=== PATIENT | male | born 1950 | race Caucasian/White ===

== ENCOUNTER 2016-08-08 15:39 | Emergency (ER) | payer OTHER ==
[~2016-08-08] VITALS: Ht 170.2 cm; Wt 104.3 kg
[~2016-08-08 15:39] MED LIST: ACETAMINOPHEN/O1 TA3 PO; APR10 PO; ATI1 PO; ATIVAN1 MG PO; ATIVAN2 M1 PO; ATIVAN2 MG PO; CELEXA10 MG PO; COL100 PO; COL250 PO; DIO160 PO; DIOVAN160 MG PO; ECO81 PO; EFF75 PO; EFFEXOR XR150 M1 PO; EFFEXOR-XR37.5 MG PO; ELA25 PO; ELAVIL25 MG PO; FER300 PO; FERROUS SULFAT325 M2 PO; FLA500 PO; GLU850 PO; KLOR-CON M2020 MEQ PO; LAC PO; LAC30L PO; LANTUS SOLOS100 U/M1 SC; LANTUS SOLOS100 U/ML SC; LEVAQUIN LEVA-750 M1 PO; LISINOPRIL10 MG PO; MAC100 PO; METFORMIN HCL1000 MG PO; METFORMIN850 M1 PO; METFORMIN850 MG PO; METOPROLOL SUC100 M2; MSC15 PO; NEU100 PO; NEURONTIN300 PO; NEXIUM40 MG PO; NOR10T PO; NOR5 PO; PAXIL20 MG PO; PERCOCET 10/3251 TAB PO; PERCOCET1 TA2 PO; PRI20 PO; PRILOSEC40 MG PO; REGLAN10 MG PO; TRE400 PO; ULT50 PO; VITAMIN C250 M1 PO; XANAX0.5 MG PO
[2016-08-08 17:59] LABS: microscopic required? NO
[2016-08-08 18:12] LABS: urine erythrocyte NEGATIVE (NEGATIVE)
[2016-08-08 18:15] LABS: BASOPHIL % 0.2 % (0-2); PLATELET COUNT 239 x10^3mcL (130-400)
[2016-08-08 18:16] LABS: RED CELL DISTRIBUTION WIDTH 16.9 % (11.5-14.5)
[2016-08-08 18:32] LABS: CALCIUM 8.1 mg/dL (8.5-10.1); CARBON DIOXIDE 28.4 mmol/L (21-32); CHLORIDE SERUM 104 mmol/L (98-107); CREATININE SERUM 0.9 mg/dL (0.7-1.3); GFR1 > 60 mL/min; GLUCOSE SERUM 142 mg/dL (74-106); POTASSIUM SERUM 3.7 mmol/L (3.5-5.1); SODIUM SERUM 142 mmol/L (136-145)
[2016-08-08 18:44] LABS: ALKALINE PHOSPHATASE 138 U/L (46-116); ALT/SGPT 155 U/L (16-63); AST/SGOT 169 U/L (15-37); BILIRUBIN TOTAL 0.6 mg/dL (0.20-1.00); TOTAL PROTEIN, SERUM 6.8 g/dL (6.4-8.2)
[2016-08-08 18:45] LABS: ALBUMIN 2.9 g/dL (3.4-5.0)
[2016-08-08 19:59] VITALS: BP 128/78
== END 2016-08-08 19:59 | disposition home or self-care (01) ==
LOC: ED 15:39
PROVIDERS: Emergency Medicine
DX: J18.1 Lobar pneumonia, unspecified organism (principal); G89.4 Chronic pain syndrome; M54.2 Cervicalgia; M54.9 Dorsalgia, unspecified; F43.10 Post-traumatic stress disorder, unspecified
CPT/HCPCS: 83880

== ENCOUNTER 2016-08-28 22:00 | Emergency (ER) | payer OTHER ==
[2016-08-28 22:42] LABS: BASOPHIL % 0.6 % (0-2); PLATELET COUNT 313 x10^3mcL (130-400)
[2016-08-28 22:43] LABS: RED CELL DISTRIBUTION WIDTH 15.5 % (11.5-14.5)
[2016-08-28 23:02] LABS: CARBON DIOXIDE 26.3 mmol/L (21-32); CHLORIDE SERUM 110 mmol/L (98-107); CREATININE SERUM 0.9 mg/dL (0.7-1.3); GFR1 > 60 mL/min; GLUCOSE SERUM 197 mg/dL (74-106); POTASSIUM SERUM 3.3 mmol/L (3.5-5.1); SODIUM SERUM 147 mmol/L (136-145)
[2016-08-28 23:09] LABS: ALBUMIN 3.2 g/dL (3.4-5.0); ALKALINE PHOSPHATASE 81 U/L (46-116); ALT/SGPT 17 U/L (16-63); AST/SGOT 13 U/L (15-37); BILIRUBIN TOTAL 0.35 mg/dL (0.20-1.00); LIPASE 113 IU/L (73-393); TOTAL PROTEIN, SERUM 6.6 g/dL (6.4-8.2)
[2016-08-29 00:36] VITALS: BP 161/95
== END 2016-08-29 00:36 | disposition home or self-care (01) ==
LOC: ED 22:00
PROVIDERS: Emergency Medicine
DX: R10.9 Unspecified abdominal pain (principal); G89.29 Other chronic pain; M54.9 Dorsalgia, unspecified; E87.6 Hypokalemia; F41.9 Anxiety disorder, unspecified; E11.9 Type 2 diabetes mellitus without complications; G62.9 Polyneuropathy, unspecified; Z98.890 Other specified postprocedural states
CPT/HCPCS: J1630; J2270; J2405

== ENCOUNTER 2016-08-29 07:04 | Emergency (ER) | payer OTHER ==
[~2016-08-29] VITALS: Ht 172.7 cm; Wt 86.2 kg
[2016-08-29 08:17] VITALS: BP 171/99
== END 2016-08-29 08:45 | disposition home or self-care (01) ==
LOC: ED 07:04
DX: F41.1 Generalized anxiety disorder (principal); F43.9 Reaction to severe stress, unspecified; G89.29 Other chronic pain; M54.9 Dorsalgia, unspecified; E11.9 Type 2 diabetes mellitus without complications; I10 Essential (primary) hypertension; E66.01 Morbid (severe) obesity due to excess calories; R07.9 Chest pain, unspecified; R06.02 Shortness of breath
CPT/HCPCS: J1630; J1885; J2060

== ENCOUNTER 2016-09-24 17:05 | Emergency (ER) | payer OTHER ==
[~2016-09-24] VITALS: Ht 170.2 cm; Wt 93.0 kg
[2016-09-24 19:48] VITALS: BP 145/88
== END 2016-09-24 19:48 | disposition home or self-care (01) ==
LOC: ED 17:05
DX: F41.9 Anxiety disorder, unspecified (principal); M54.5 Low back pain; Z91.013 Allergy to seafood
CPT/HCPCS: J1885

== ENCOUNTER 2016-09-30 05:31 | Emergency (ER) | payer OTHER ==
[~2016-09-30] VITALS: Ht 170.2 cm; Wt 93.0 kg
[2016-09-30 07:02] LABS: CALCIUM 8.3 mg/dL (8.5-10.1); CARBON DIOXIDE 28.3 mmol/L (21-32); CHLORIDE SERUM 102 mmol/L (98-107); CREATININE SERUM 0.8 mg/dL (0.7-1.3); GFR1 > 60 mL/min; GLUCOSE SERUM 202 mg/dL (74-106); POTASSIUM SERUM 3.6 mmol/L (3.5-5.1); SODIUM SERUM 136 mmol/L (136-145)
[2016-09-30 07:06] LABS: ALKALINE PHOSPHATASE 89 U/L (46-116); ALT/SGPT 14 U/L (16-63); AST/SGOT 13 U/L (15-37); BILIRUBIN TOTAL 0.2 mg/dL (0.20-1.00); CHOLESTEROL 190 mg/dL (<200); CHOLESTEROL/HDL RATIO 3.6; HDL CHOLESTEROL 53 mg/dL (40-60); LIPASE 76 IU/L (73-393); TOTAL PROTEIN, SERUM 6.7 g/dL (6.4-8.2); TRIGLYCERIDES 173 mg/dL (<150)
[2016-09-30 07:07] LABS: ALBUMIN 2.9 g/dL (3.4-5.0)
[2016-09-30 07:16] LABS: BASOPHIL % 0.4 % (0-2); PLATELET COUNT 259 x10^3mcL (130-400)
[2016-09-30 07:19] LABS: T3 TOTAL 1.39 ng/mL
[2016-09-30 07:20] LABS: RED CELL DISTRIBUTION WIDTH 15.1 % (11.5-14.5)
[2016-09-30 07:24] LABS: microscopic required? NO
[2016-09-30 07:55] LABS: urine erythrocyte NEGATIVE (NEGATIVE)
[2016-09-30 08:15] LABS: FREE T4 1.05 ng/dL (0.76-1.46)
[2016-09-30 08:53] VITALS: BP 160/96
== END 2016-09-30 08:53 | disposition home or self-care (01) ==
LOC: ED 05:31
PROVIDERS: Specialist
DX: R10.30 Lower abdominal pain, unspecified (principal); M19.90 Unspecified osteoarthritis, unspecified site; G90.9 Disorder of the autonomic nervous system, unspecified; G89.29 Other chronic pain
CPT/HCPCS: 83880; 84439; J1885; J2405; J7030

== ENCOUNTER 2016-10-05 12:27 | Emergency (ER) | payer OTHER ==
[2016-10-05 15:06] VITALS: BP 172/86
== END 2016-10-05 15:06 | disposition home or self-care (01) ==
LOC: ED 12:27
DX: F41.9 Anxiety disorder, unspecified (principal); M54.9 Dorsalgia, unspecified; G89.29 Other chronic pain; E11.9 Type 2 diabetes mellitus without complications; I10 Essential (primary) hypertension; E66.9 Obesity, unspecified; F43.10 Post-traumatic stress disorder, unspecified; Z79.899 Other long term (current) drug therapy; Z98.890 Other specified postprocedural states; Z79.891 Long term (current) use of opiate analgesic; Z91.013 Allergy to seafood
CPT/HCPCS: J1630; J1885; J2060

== ENCOUNTER 2016-10-31 09:13 | Emergency (ER) | payer OTHER ==
[2016-10-31 10:06] LABS: ALKALINE PHOSPHATASE 92 U/L (46-116); ALT/SGPT 32 U/L (16-63); AST/SGOT 22 U/L (15-37); BILIRUBIN TOTAL 0.22 mg/dL (0.20-1.00); CALCIUM 8.4 mg/dL (8.5-10.1); CARBON DIOXIDE 27.9 mmol/L (21-32); CHLORIDE SERUM 101 mmol/L (98-107); GFR1 > 60 mL/min; GLUCOSE SERUM 236 mg/dL (74-106); SODIUM SERUM 138 mmol/L (136-145)
[2016-10-31 10:07] LABS: BASOPHIL % 0.3 % (0-2); PLATELET COUNT 318 x10^3mcL (130-400)
[2016-10-31 10:08] LABS: ALBUMIN 2.8 g/dL (3.4-5.0); POTASSIUM SERUM 2.8 mmol/L (3.5-5.1); RED CELL DISTRIBUTION WIDTH 14.8 % (11.5-14.5)
[2016-10-31 11:24] VITALS: BP 120/64
== END 2016-10-31 11:24 | disposition home or self-care (01) ==
LOC: ED 09:13
PROVIDERS: Specialist
DX: E87.6 Hypokalemia (principal); M79.1 Myalgia; I10 Essential (primary) hypertension; E11.9 Type 2 diabetes mellitus without complications
CPT/HCPCS: J1885; J2405; J3010; J7030

== ENCOUNTER 2016-11-16 18:30 | Emergency (ER) | payer OTHER ==
[~2016-11-16] VITALS: Ht 170.2 cm; Wt 95.2 kg
[2016-11-16 19:07] VITALS: BP 163/103
== END 2016-11-16 19:40 | disposition home or self-care (01) ==
LOC: ED 18:30
DX: G89.29 Other chronic pain (principal); M54.5 Low back pain; F41.9 Anxiety disorder, unspecified; Z88.6 Allergy status to analgesic agent

== ENCOUNTER 2016-11-23 20:38 | Emergency (ER) | payer OTHER ==
[~2016-11-23] VITALS: Ht 170.2 cm; Wt 95.2 kg
[2016-11-23 21:34] LABS: BASOPHIL % 0.3 % (0-2); PLATELET COUNT 365 x10^3mcL (130-400)
[2016-11-23 21:35] LABS: RED CELL DISTRIBUTION WIDTH 14.6 % (11.5-14.5)
[2016-11-23 21:40] LABS: ALBUMIN 3.5 g/dL (3.4-5.0); ALKALINE PHOSPHATASE 81 U/L (46-116); ALT/SGPT 17 U/L (16-63); AMYLASE 28 U/L (25-115); AST/SGOT 20 U/L (15-37); BILIRUBIN TOTAL 0.41 mg/dL (0.20-1.00); CALCIUM 8.5 mg/dL (8.5-10.1); CARBON DIOXIDE 19.3 mmol/L (21-32); CHLORIDE SERUM 103 mmol/L (98-107); CREATININE SERUM 1.2 mg/dL (0.7-1.3); GFR1 > 60 mL/min; GLUCOSE SERUM 117 mg/dL (74-106); LIPASE 76 IU/L (73-393); SODIUM SERUM 141 mmol/L (136-145); TOTAL PROTEIN, SERUM 7.6 g/dL (6.4-8.2)
[2016-11-23 21:44] LABS: POTASSIUM SERUM 2.7 mmol/L (3.5-5.1)
[2016-11-23 23:57] VITALS: BP 186/105
== END 2016-11-23 23:57 | disposition home or self-care (01) ==
LOC: ED 20:38
PROVIDERS: Emergency Medicine
DX: F13.20 Sedative, hypnotic or anxiolytic dependence, uncomplicated (principal); R11.10 Vomiting, unspecified; K57.92 Diverticulitis of intestine, part unspecified, without perforation or abscess without bleeding; Z91.013 Allergy to seafood; Z79.899 Other long term (current) drug therapy; Z79.891 Long term (current) use of opiate analgesic
CPT/HCPCS: 36415; 83880; J1885; Q0162

== ENCOUNTER 2016-12-15 08:57 | Emergency (ER) | payer OTHER, MEDICAID ==
[~2016-12-15] VITALS: Ht 170.2 cm; Wt 95.2 kg
[2016-12-15 09:50] LABS: BASOPHIL % 0.6 % (0-2); PLATELET COUNT 331 x10^3mcL (130-400)
[2016-12-15 09:51] LABS: RED CELL DISTRIBUTION WIDTH 15.4 % (11.5-14.5)
[2016-12-15 09:56] LABS: CALCIUM 8.1 mg/dL (8.5-10.1); CARBON DIOXIDE 27.3 mmol/L (21-32); CHLORIDE SERUM 102 mmol/L (98-107); CREATININE SERUM 1.1 mg/dL (0.7-1.3); GFR1 > 60 mL/min; GLUCOSE SERUM 253 mg/dL (74-106); SODIUM SERUM 138 mmol/L (136-145)
[2016-12-15 10:09] LABS: POTASSIUM SERUM 2.8 mmol/L (3.5-5.1)
[2016-12-15 11:48] VITALS: BP 170/89
== END 2016-12-15 11:48 | disposition home or self-care (01) ==
LOC: ED 08:57
PROVIDERS: Emergency Medicine
DX: R07.89 Other chest pain (principal); F13.20 Sedative, hypnotic or anxiolytic dependence, uncomplicated; F11.20 Opioid dependence, uncomplicated; E87.6 Hypokalemia; F41.9 Anxiety disorder, unspecified; E11.9 Type 2 diabetes mellitus without complications; I10 Essential (primary) hypertension; Z79.891 Long term (current) use of opiate analgesic; Z79.4 Long term (current) use of insulin; Z79.84 Long term (current) use of oral hypoglycemic drugs; Z91.013 Allergy to seafood
CPT/HCPCS: 36415; Q0092

== ENCOUNTER 2016-12-17 12:39 | Emergency (ER) | payer OTHER, MEDICAID ==
[2016-12-17 14:08] LABS: CALCIUM 8.4 mg/dL (8.5-10.1); CARBON DIOXIDE 29.4 mmol/L (21-32); CHLORIDE SERUM 105 mmol/L (98-107); CREATININE SERUM 0.9 mg/dL (0.7-1.3); GFR1 > 60 mL/min; GLUCOSE SERUM 183 mg/dL (74-106); POTASSIUM SERUM 3.4 mmol/L (3.5-5.1); SODIUM SERUM 140 mmol/L (136-145)
[2016-12-17 15:20] VITALS: BP 147/72
== END 2016-12-17 15:20 | disposition home or self-care (01) ==
LOC: ED 12:39
PROVIDERS: Emergency Medicine
DX: G89.29 Other chronic pain (principal); F11.20 Opioid dependence, uncomplicated; M54.5 Low back pain; E87.6 Hypokalemia; E11.9 Type 2 diabetes mellitus without complications; I10 Essential (primary) hypertension; Z91.013 Allergy to seafood
CPT/HCPCS: 36415; J1885

== ENCOUNTER 2016-12-29 04:27 | Emergency (ER) | payer OTHER, MEDICAID ==
[~2016-12-29] VITALS: Ht 170.2 cm; Wt 95.2 kg
[2016-12-29 04:49] LABS: BASOPHIL % 0.4 % (0-2); PLATELET COUNT 349 x10^3mcL (130-400)
[2016-12-29 04:50] LABS: RED CELL DISTRIBUTION WIDTH 15.1 % (11.5-14.5)
[2016-12-29 05:11] LABS: ALKALINE PHOSPHATASE 76 U/L (46-116); ALT/SGPT 15 U/L (16-63); AST/SGOT 30 U/L (15-37); CALCIUM 8.2 mg/dL (8.5-10.1); CARBON DIOXIDE 34.2 mmol/L (21-32); CHLORIDE SERUM 103 mmol/L (98-107); CREATININE SERUM 1.1 mg/dL (0.7-1.3); GFR1 > 60 mL/min; GLUCOSE SERUM 134 mg/dL (74-106); HDL CHOLESTEROL 41 mg/dL (40-60); LIPASE 63 IU/L (73-393); SODIUM SERUM 143 mmol/L (136-145); TOTAL PROTEIN, SERUM 7.2 g/dL (6.4-8.2); TRIGLYCERIDES 192 mg/dL (<150)
[2016-12-29 05:13] LABS: CHOLESTEROL 205 mg/dL (<200)
[2016-12-29 05:14] LABS: FREE T4 1.19 ng/dL (0.76-1.46); FREE THYROXINE INDEX 3.3 ug/dL (1.4-4.5); POTASSIUM SERUM 2.6 mmol/L (3.5-5.1); T4(THYROXINE) 9.2 ug/dL (4.7-13.3)
[2016-12-29 06:00] VITALS: BP 157/87
[2016-12-29 06:10] LABS: T3 TOTAL 0.93 ng/mL
== END 2016-12-29 06:00 | disposition home or self-care (01) ==
LOC: ED 04:27
PROVIDERS: Specialist
DX: F41.9 Anxiety disorder, unspecified (principal); I10 Essential (primary) hypertension; E11.40 Type 2 diabetes mellitus with diabetic neuropathy, unspecified; F43.10 Post-traumatic stress disorder, unspecified; F17.200 Nicotine dependence, unspecified, uncomplicated; K21.9 Gastro-esophageal reflux disease without esophagitis; F13.10 Sedative, hypnotic or anxiolytic abuse, uncomplicated; F11.10 Opioid abuse, uncomplicated; Z91.013 Allergy to seafood; Z98.890 Other specified postprocedural states
CPT/HCPCS: 36415; 83880; 84439; J1885; Q0092

== ENCOUNTER 2017-02-05 15:15 | Emergency (ER) | payer OTHER ==
[2017-02-05 17:52] LABS: CHLORIDE SERUM 99 mmol/L (98-107); CREATININE SERUM 1.1 mg/dL (0.7-1.3); GFR1 > 60 mL/min; GLUCOSE SERUM 153 mg/dL (74-106); POTASSIUM SERUM 3.1 mmol/L (3.5-5.1); SODIUM SERUM 138 mmol/L (136-145)
[2017-02-05 19:17] VITALS: BP 175/101
== END 2017-02-05 19:17 | disposition home or self-care (01) ==
LOC: ED 15:15
PROVIDERS: Emergency Medicine
DX: S09.90XA Unspecified injury of head, initial encounter (principal); E87.6 Hypokalemia; G89.4 Chronic pain syndrome; I10 Essential (primary) hypertension; E11.9 Type 2 diabetes mellitus without complications; W17.89XA Other fall from one level to another, initial encounter; Y93.89 Activity, other specified; Y99.8 Other external cause status; Y92.89 Other specified places as the place of occurrence of the external cause
CPT/HCPCS: 36415

== ENCOUNTER 2017-02-12 07:53 | Emergency (ER) | payer OTHER, MEDICAID ==
[2017-02-12 08:51] LABS: CALCIUM 9.1 mg/dL (8.5-10.1); CARBON DIOXIDE 20.8 mmol/L (21-32); CHLORIDE SERUM 103 mmol/L (98-107); CREATININE SERUM 1.1 mg/dL (0.7-1.3); GFR1 > 60 mL/min; GLUCOSE SERUM 195 mg/dL (74-106); SODIUM SERUM 140 mmol/L (136-145)
[2017-02-12 08:57] LABS: POTASSIUM SERUM 2.6 mmol/L (3.5-5.1)
[2017-02-12 09:30] LABS: BASOPHIL % 0.3 % (0-2); PLATELET COUNT 400 x10^3mcL (130-400)
[2017-02-12 09:37] LABS: RED CELL DISTRIBUTION WIDTH 16.9 % (11.5-14.5)
[2017-02-12 10:00] VITALS: BP 174/100
== END 2017-02-12 12:25 | disposition home or self-care (01) ==
LOC: ED 07:53
PROVIDERS: Emergency Medicine
DX: F41.9 Anxiety disorder, unspecified (principal); E87.6 Hypokalemia; G89.29 Other chronic pain; M54.9 Dorsalgia, unspecified; I10 Essential (primary) hypertension; E11.9 Type 2 diabetes mellitus without complications; K21.9 Gastro-esophageal reflux disease without esophagitis; M47.9 Spondylosis, unspecified; Z91.013 Allergy to seafood
CPT/HCPCS: 36415; J1885; Q0092

== ENCOUNTER 2017-05-13 20:49 | Emergency (ER) | payer OTHER, MEDICAID ==
[2017-05-13 21:29] VITALS: BP 183/87
== END 2017-05-13 22:43 | disposition home or self-care (01) ==
LOC: ED 20:49
DX: G89.29 Other chronic pain (principal); M54.5 Low back pain; F41.9 Anxiety disorder, unspecified; I10 Essential (primary) hypertension; K21.9 Gastro-esophageal reflux disease without esophagitis; E11.40 Type 2 diabetes mellitus with diabetic neuropathy, unspecified; Z91.013 Allergy to seafood
CPT/HCPCS: J1885

== ENCOUNTER 2017-07-10 12:16 | Emergency (ER) | payer OTHER ==
[~2017-07-10] VITALS: Ht 170.2 cm; Wt 77.1 kg
[2017-07-10 12:17] VITALS: Ht 170.2 cm; Wt 77.1 kg
[2017-07-10 15:46] VITALS: BP 167/89
== END 2017-07-10 15:46 | disposition home or self-care (01) ==
LOC: ED 12:16
DX: G89.29 Other chronic pain (principal); M54.5 Low back pain; F41.9 Anxiety disorder, unspecified; E11.9 Type 2 diabetes mellitus without complications; E66.01 Morbid (severe) obesity due to excess calories; I10 Essential (primary) hypertension; F17.200 Nicotine dependence, unspecified, uncomplicated; M47.9 Spondylosis, unspecified; G62.9 Polyneuropathy, unspecified; Z91.013 Allergy to seafood
CPT/HCPCS: J1630; J1885; J2060

== ENCOUNTER 2017-07-13 13:53 | Emergency (ER) | payer OTHER ==
[~2017-07-13] VITALS: Ht 175.3 cm; Wt 97.5 kg
[2017-07-13 13:57] VITALS: BP 185/97; Ht 175.3 cm; Wt 97.5 kg
== END 2017-07-13 14:32 | disposition home or self-care (01) ==
LOC: ED 13:53
DX: G89.29 Other chronic pain (principal); M54.5 Low back pain; F41.9 Anxiety disorder, unspecified; F13.20 Sedative, hypnotic or anxiolytic dependence, uncomplicated; F17.200 Nicotine dependence, unspecified, uncomplicated; M47.9 Spondylosis, unspecified; G62.9 Polyneuropathy, unspecified; I10 Essential (primary) hypertension; E11.9 Type 2 diabetes mellitus without complications; Z98.890 Other specified postprocedural states; Z91.013 Allergy to seafood
CPT/HCPCS: J1885

== ENCOUNTER 2017-07-14 19:27 | Emergency (ER) | payer OTHER ==
[~2017-07-14] VITALS: Ht 170.2 cm; Wt 95.2 kg
[2017-07-14 19:37] VITALS: BP 155/103; Ht 170.2 cm; Wt 95.2 kg
== END 2017-07-14 21:26 | disposition home or self-care (01) ==
LOC: ED 19:27
DX: F13.20 Sedative, hypnotic or anxiolytic dependence, uncomplicated (principal); F41.0 Panic disorder [episodic paroxysmal anxiety]; E11.9 Type 2 diabetes mellitus without complications; G89.29 Other chronic pain; M54.5 Low back pain; Z79.84 Long term (current) use of oral hypoglycemic drugs; Z91.013 Allergy to seafood

== ENCOUNTER 2017-07-18 14:22 | Emergency (ER) | payer OTHER ==
[~2017-07-18] VITALS: Ht 170.2 cm; Wt 95.2 kg
[2017-07-18 14:49] VITALS: BP 166/87; Ht 170.2 cm; Wt 95.2 kg
== END 2017-07-18 15:13 | disposition home or self-care (01) ==
LOC: ED 14:22
DX: F41.9 Anxiety disorder, unspecified (principal); F11.20 Opioid dependence, uncomplicated; F13.20 Sedative, hypnotic or anxiolytic dependence, uncomplicated; I10 Essential (primary) hypertension; E11.9 Type 2 diabetes mellitus without complications; G89.29 Other chronic pain; M54.89 Other dorsalgia
CPT/HCPCS: Q0162

== ENCOUNTER 2017-08-10 08:18 | Emergency (ER) | payer OTHER ==
[~2017-08-10] VITALS: Ht 170.2 cm; Wt 93.0 kg
[2017-08-10 08:23] VITALS: Ht 170.2 cm; Wt 93.0 kg
[2017-08-10 10:18] VITALS: BP 172/93
== END 2017-08-10 10:18 | disposition home or self-care (01) ==
LOC: ED 08:18
DX: F41.9 Anxiety disorder, unspecified (principal); G89.29 Other chronic pain; M54.5 Low back pain; I10 Essential (primary) hypertension; K21.9 Gastro-esophageal reflux disease without esophagitis; E11.9 Type 2 diabetes mellitus without complications; M47.9 Spondylosis, unspecified; G62.9 Polyneuropathy, unspecified; F11.20 Opioid dependence, uncomplicated; Z91.013 Allergy to seafood
CPT/HCPCS: J1885

== ENCOUNTER 2017-08-12 08:20 | Emergency (ER) | payer OTHER ==
[~2017-08-12] VITALS: Ht 170.2 cm; Wt 89.8 kg
[2017-08-12 08:30] VITALS: BP 144/93; Ht 170.2 cm; Wt 89.8 kg
== END 2017-08-12 10:34 | disposition home or self-care (01) ==
LOC: ED 08:20
DX: F41.9 Anxiety disorder, unspecified (principal); G89.29 Other chronic pain; M54.9 Dorsalgia, unspecified; F11.21 Opioid dependence, in remission; F13.20 Sedative, hypnotic or anxiolytic dependence, uncomplicated; I10 Essential (primary) hypertension; E11.9 Type 2 diabetes mellitus without complications; Z88.8 Allergy status to other drugs, medicaments and biological substances

== ENCOUNTER 2017-08-14 07:04 | Emergency (ER) | payer OTHER ==
[~2017-08-14] VITALS: Ht 170.2 cm; Wt 93.0 kg
[2017-08-14 07:15] VITALS: BP 176/87; Ht 170.2 cm; Wt 93.0 kg
== END 2017-08-14 08:27 | disposition home or self-care (01) ==
LOC: ED 07:04
DX: F41.9 Anxiety disorder, unspecified (principal); I10 Essential (primary) hypertension; E11.9 Type 2 diabetes mellitus without complications; G89.29 Other chronic pain; M54.9 Dorsalgia, unspecified; K21.9 Gastro-esophageal reflux disease without esophagitis; G62.9 Polyneuropathy, unspecified; Z91.013 Allergy to seafood; Z98.890 Other specified postprocedural states
CPT/HCPCS: J1885

== ENCOUNTER 2017-08-19 08:55 | Emergency (ER) | payer OTHER, MEDICAID ==
[~2017-08-19] VITALS: Ht 170.2 cm; Wt 93.0 kg
[2017-08-19 08:59] VITALS: BP 144/81; Ht 170.2 cm; Wt 93.0 kg
[2017-08-19 10:59] LABS: BASOPHIL % 0.6 % (0-2)
[2017-08-19 11:00] LABS: CALCIUM 8.7 mg/dL (8.5-10.1); CARBON DIOXIDE 25.2 mmol/L (21-32); CHLORIDE SERUM 101 mmol/L (98-107); GFR1 > 60 mL/min; GLUCOSE SERUM 146 mg/dL (74-106); SODIUM SERUM 138 mmol/L (136-145)
[2017-08-19 11:12] LABS: POTASSIUM SERUM 2.9 mmol/L (3.5-5.1)
[2017-08-19 11:32] LABS: PLATELET COUNT 587 x10^3mcL (130-400); RED CELL DISTRIBUTION WIDTH 17.3 % (11.5-14.5)
== END 2017-08-19 11:42 | disposition home or self-care (01) ==
LOC: ED 08:55
PROVIDERS: Emergency Medicine
DX: R07.89 Other chest pain (principal); F41.9 Anxiety disorder, unspecified; E87.6 Hypokalemia; I10 Essential (primary) hypertension; E11.9 Type 2 diabetes mellitus without complications; G89.29 Other chronic pain; M54.9 Dorsalgia, unspecified; Z91.013 Allergy to seafood
CPT/HCPCS: 36415; J1200; J3486

== ENCOUNTER 2017-09-27 21:29 | Emergency (ER) | payer OTHER, MEDICAID ==
[~2017-09-27] VITALS: Ht 170.2 cm; Wt 93.0 kg
[2017-09-27 21:36] VITALS: Ht 170.2 cm; Wt 93.0 kg
[2017-09-28 00:23] LABS: BASOPHIL % 0.4 % (0-2); PLATELET COUNT 384 x10^3mcL (130-400)
[2017-09-28 00:36] LABS: RED CELL DISTRIBUTION WIDTH 15.9 % (11.5-14.5)
[2017-09-28 01:04] LABS: CALCIUM 8.9 mg/dL (8.5-10.1); CARBON DIOXIDE 24.8 mmol/L (21-32); CHLORIDE SERUM 105 mmol/L (98-107); CREATININE SERUM 1.1 mg/dL (0.7-1.3); GFR1 > 60 mL/min; GLUCOSE SERUM 127 mg/dL (74-106); SODIUM SERUM 142 mmol/L (136-145)
[2017-09-28 01:12] LABS: POTASSIUM SERUM 2.8 mmol/L (3.5-5.1)
[2017-09-28 04:08] VITALS: BP 86/162
== END 2017-09-28 04:08 | disposition left against medical advice (07) ==
LOC: ED 21:29
PROVIDERS: Emergency Medicine
DX: G89.29 Other chronic pain (principal); F41.9 Anxiety disorder, unspecified; I10 Essential (primary) hypertension; K21.9 Gastro-esophageal reflux disease without esophagitis; E11.40 Type 2 diabetes mellitus with diabetic neuropathy, unspecified; Z91.013 Allergy to seafood
CPT/HCPCS: J3475; J3490; J7030

== ENCOUNTER 2017-10-30 06:05 | Emergency (ER) | payer OTHER, MEDICAID ==
[~2017-10-30] VITALS: Ht 170.2 cm; Wt 93.0 kg
[2017-10-30 06:07] VITALS: Ht 170.2 cm; Wt 93.0 kg
[2017-10-30 07:02] LABS: microscopic required? NO
[2017-10-30 07:21] LABS: urine erythrocyte NEGATIVE (NEGATIVE)
[2017-10-30 07:50] VITALS: BP 135/80
== END 2017-10-30 07:50 | disposition home or self-care (01) ==
LOC: ED 06:05
PROVIDERS: Emergency Medicine
DX: G89.29 Other chronic pain (principal); M54.5 Low back pain; F41.9 Anxiety disorder, unspecified; I10 Essential (primary) hypertension; E11.40 Type 2 diabetes mellitus with diabetic neuropathy, unspecified
CPT/HCPCS: J1885; J2060

== ENCOUNTER 2017-12-21 15:37 | Emergency (ER) | payer OTHER, MEDICAID ==
[~2017-12-21] VITALS: Ht 170.2 cm; Wt 85.3 kg
[2017-12-21 16:10] VITALS: Ht 170.2 cm; Wt 85.3 kg
[2017-12-21 17:57] VITALS: BP 141/99
== END 2017-12-21 17:57 | disposition home or self-care (01) ==
LOC: ED 15:37
DX: G89.29 Other chronic pain (principal); M54.9 Dorsalgia, unspecified; F41.9 Anxiety disorder, unspecified; I10 Essential (primary) hypertension; E11.9 Type 2 diabetes mellitus without complications; Z91.013 Allergy to seafood
CPT/HCPCS: J1885; J2270; Q0162

== ENCOUNTER 2017-12-22 12:24 | Emergency (ER) | payer OTHER, MEDICAID ==
[~2017-12-22] VITALS: Ht 170.2 cm; Wt 93.0 kg
[2017-12-22 12:28] VITALS: Ht 170.2 cm; Wt 93.0 kg
[2017-12-22 12:59] LABS: CALCIUM 8.1 mg/dL (8.5-10.1); CARBON DIOXIDE 26.9 mmol/L (21-32); CHLORIDE SERUM 104 mmol/L (98-107); CREATININE SERUM 1.1 mg/dL (0.7-1.3); GFR1 > 60 mL/min; GLUCOSE SERUM 283 mg/dL (74-106); POTASSIUM SERUM 3.2 mmol/L (3.5-5.1); SODIUM SERUM 142 mmol/L (136-145)
[2017-12-22 13:57] VITALS: BP 157/92
== END 2017-12-22 13:57 | disposition home or self-care (01) ==
LOC: ED 12:24
PROVIDERS: Emergency Medicine
DX: G89.29 Other chronic pain (principal); M54.5 Low back pain; F41.9 Anxiety disorder, unspecified; I10 Essential (primary) hypertension; E11.9 Type 2 diabetes mellitus without complications; F11.20 Opioid dependence, uncomplicated; Z91.013 Allergy to seafood
CPT/HCPCS: J1200; J1885; J3490

== ENCOUNTER 2017-12-28 12:32 | Emergency (ER) | payer OTHER, MEDICAID ==
[~2017-12-28] VITALS: Ht 170.2 cm; Wt 89.8 kg
[2017-12-28 12:38] VITALS: BP 191/106; Ht 170.2 cm; Wt 89.8 kg
== END 2017-12-28 13:43 | disposition home or self-care (01) ==
LOC: ED 12:32
DX: G89.29 Other chronic pain (principal); M54.9 Dorsalgia, unspecified; F41.8 Other specified anxiety disorders; I10 Essential (primary) hypertension; E11.9 Type 2 diabetes mellitus without complications; K21.9 Gastro-esophageal reflux disease without esophagitis
CPT/HCPCS: J1885

== ENCOUNTER 2017-12-31 06:07 | Emergency (ER) | payer OTHER, MEDICAID ==
[~2017-12-31] VITALS: Ht 170.2 cm; Wt 93.0 kg
[2017-12-31 06:13] VITALS: Ht 170.2 cm; Wt 93.0 kg
[2017-12-31 06:50] LABS: BASOPHIL % 0.4 % (0-2); PLATELET COUNT 391 x10^3mcL (130-400)
[2017-12-31 06:55] LABS: RED CELL DISTRIBUTION WIDTH 17.2 % (11.5-14.5)
[2017-12-31 07:19] LABS: CALCIUM 8.6 mg/dL (8.5-10.1); CARBON DIOXIDE 24.1 mmol/L (21-32); CHLORIDE SERUM 103 mmol/L (98-107); CREATININE SERUM 0.9 mg/dL (0.7-1.3); GFR1 > 60 mL/min; GLUCOSE SERUM 172 mg/dL (74-106); POTASSIUM SERUM 3.2 mmol/L (3.5-5.1); SODIUM SERUM 139 mmol/L (136-145)
[2017-12-31 07:24] LABS: ALKALINE PHOSPHATASE 92 U/L (46-116); ALT/SGPT 17 U/L (16-63); AMYLASE 40 U/L (25-115); AST/SGOT 15 U/L (15-37); LIPASE 126 IU/L (73-393); TOTAL PROTEIN, SERUM 7.5 g/dL (6.4-8.2)
[2017-12-31 07:25] LABS: ALBUMIN 3.3 g/dL (3.4-5.0)
[2017-12-31 08:19] VITALS: BP 147/77
== END 2017-12-31 08:19 | disposition home or self-care (01) ==
LOC: ED 06:07
PROVIDERS: Specialist
DX: G89.29 Other chronic pain (principal); M54.9 Dorsalgia, unspecified; F41.9 Anxiety disorder, unspecified; R10.9 Unspecified abdominal pain; I10 Essential (primary) hypertension; E11.40 Type 2 diabetes mellitus with diabetic neuropathy, unspecified; K21.9 Gastro-esophageal reflux disease without esophagitis; Z86.69 Personal history of other diseases of the nervous system and sense organs; Z98.890 Other specified postprocedural states; Z91.013 Allergy to seafood
CPT/HCPCS: 36415; J1885

== ENCOUNTER 2018-03-03 23:44 | Emergency (ER) | payer OTHER, MEDICAID ==
[~2018-03-03] VITALS: Ht 170.2 cm; Wt 93.0 kg
[2018-03-03 23:48] VITALS: BP 180/116; Ht 170.2 cm; Wt 93.0 kg
== END 2018-03-04 01:15 | disposition left against medical advice (07) ==
LOC: ED 23:44
DX: T40.601A Poisoning by unspecified narcotics, accidental (unintentional), initial encounter (principal); G89.29 Other chronic pain; M54.9 Dorsalgia, unspecified; G90.09 Other idiopathic peripheral autonomic neuropathy; F19.10 Other psychoactive substance abuse, uncomplicated; E11.9 Type 2 diabetes mellitus without complications; Z91.013 Allergy to seafood; Y92.89 Other specified places as the place of occurrence of the external cause
CPT/HCPCS: J1885; J2310; Q0162

== ENCOUNTER 2018-03-29 14:39 | Emergency (ER) | payer OTHER, MEDICAID ==
[~2018-03-29] VITALS: Ht 170.2 cm; Wt 93.0 kg
[2018-03-29 15:15] VITALS: BP 137/86; Ht 170.2 cm; Wt 93.0 kg
== END 2018-03-29 16:36 | disposition home or self-care (01) ==
LOC: ED 14:39
DX: F41.9 Anxiety disorder, unspecified (principal); M79.10 Myalgia, unspecified site; I10 Essential (primary) hypertension; G89.29 Other chronic pain; K21.9 Gastro-esophageal reflux disease without esophagitis; E11.40 Type 2 diabetes mellitus with diabetic neuropathy, unspecified; Z98.890 Other specified postprocedural states; Z91.013 Allergy to seafood
CPT/HCPCS: J1885

== ENCOUNTER 2018-04-16 22:30 | Emergency (ER) | payer OTHER, MEDICAID ==
[~2018-04-16] VITALS: Ht 170.2 cm; Wt 89.8 kg
[2018-04-16 22:36] VITALS: Ht 170.2 cm; Wt 89.8 kg
[2018-04-16 23:20] LABS: BILIRUBIN TOTAL 0.1 mg/dL (0.20-1.00); CALCIUM 9.1 mg/dL (8.5-10.1); CARBON DIOXIDE 24.6 mmol/L (21-32); CREATININE SERUM 1.7 mg/dL (0.7-1.3); TOTAL PROTEIN, SERUM 7.7 g/dL (6.4-8.2)
[2018-04-16 23:31] LABS: ALBUMIN 3.3 g/dL (3.4-5.0)
[2018-04-16 23:33] LABS: BASOPHIL % 0.5 % (0-2); PLATELET COUNT 323 x10^3mcL (130-400); RED CELL DISTRIBUTION WIDTH 16.9 % (11.5-14.5)
[2018-04-16 23:36] LABS: POTASSIUM SERUM 2.7 mmol/L (3.5-5.1)
[2018-04-16 23:48] VITALS: BP 162/100
== END 2018-04-17 00:59 | disposition left against medical advice (07) ==
LOC: ED 22:30
PROVIDERS: Emergency Medicine
DX: Z53.21 Procedure and treatment not carried out due to patient leaving prior to being seen by health care provider (principal)
CPT/HCPCS: 36415; 83880; 85378; J1885; Q0092

== ENCOUNTER 2018-05-05 20:58 | Emergency (ER) | payer OTHER, MEDICAID ==
[~2018-05-05] VITALS: Ht 170.2 cm; Wt 93.0 kg
[2018-05-05 21:14] VITALS: Ht 170.2 cm; Wt 93.0 kg
[2018-05-05 23:00] VITALS: BP 167/77
== END 2018-05-05 23:00 | disposition home or self-care (01) ==
LOC: ED 20:58
DX: M54.5 Low back pain (principal); F41.9 Anxiety disorder, unspecified; I10 Essential (primary) hypertension; G89.29 Other chronic pain; E11.40 Type 2 diabetes mellitus with diabetic neuropathy, unspecified; K21.9 Gastro-esophageal reflux disease without esophagitis; Z98.890 Other specified postprocedural states; Z91.013 Allergy to seafood
CPT/HCPCS: J1885

== ENCOUNTER 2018-05-20 19:59 | Emergency (ER) | payer OTHER, MEDICAID ==
[~2018-05-20] VITALS: Ht 170.2 cm; Wt 85.3 kg
[2018-05-20 20:02] VITALS: Ht 170.2 cm; Wt 85.3 kg
[2018-05-20 21:23] VITALS: BP 183/104
== END 2018-05-20 21:24 | disposition home or self-care (01) ==
LOC: ED 19:59
DX: F41.9 Anxiety disorder, unspecified (principal); G89.29 Other chronic pain; M54.9 Dorsalgia, unspecified; I10 Essential (primary) hypertension; K21.9 Gastro-esophageal reflux disease without esophagitis; E11.40 Type 2 diabetes mellitus with diabetic neuropathy, unspecified; Z91.013 Allergy to seafood
CPT/HCPCS: J1885

== ENCOUNTER 2018-06-28 19:36 | Emergency (ER) | payer OTHER, MEDICAID ==
[~2018-06-28] VITALS: Ht 170.2 cm; Wt 95.3 kg
[2018-06-28 20:02] VITALS: Ht 170.2 cm; Wt 95.3 kg
[2018-06-28 21:16] VITALS: BP 180/80
== END 2018-06-28 21:16 | disposition home or self-care (01) ==
LOC: ED 19:36
DX: F41.9 Anxiety disorder, unspecified (principal); G89.29 Other chronic pain; M54.5 Low back pain
CPT/HCPCS: J1885; J2060

== ENCOUNTER 2018-07-11 11:56 | Inpatient (IN) | payer OTHER, MEDICAID ==
[~2018-07-11] VITALS: Ht 170.2 cm; Wt 93.0 kg
[2018-07-11 12:50] VITALS: Ht 170.2 cm; Wt 93.0 kg
[2018-07-11 14:08] LABS: BASOPHIL % 0.2 % (0-2); PLATELET COUNT 303 x10^3mcL (130-400)
[2018-07-11 14:10] LABS: microscopic required? NO
[2018-07-11 14:14] LABS: RED CELL DISTRIBUTION WIDTH 16.4 % (11.5-14.5)
[2018-07-11 14:15] LABS: CALCIUM 8.7 mg/dL (8.5-10.1); CARBON DIOXIDE 32.9 mmol/L (21-32); CHLORIDE SERUM 100 mmol/L (98-107); CREATININE SERUM 1.1 mg/dL (0.7-1.3); GFR1 > 60 mL/min; GLUCOSE SERUM 86 mg/dL (74-106); SODIUM SERUM 141 mmol/L (136-145)
[2018-07-11 14:28] LABS: ALBUMIN 3.5 g/dL (3.4-5.0); ALKALINE PHOSPHATASE 92 U/L (46-116); ALT/SGPT 16 U/L (16-63); AST/SGOT 18 U/L (15-37); BILIRUBIN TOTAL 0.2 mg/dL (0.20-1.00); FREE T4 1.03 ng/dL (0.76-1.46); LIPASE 131 IU/L (73-393); TOTAL PROTEIN, SERUM 7.9 g/dL (6.4-8.2)
[2018-07-11 14:36] LABS: urine erythrocyte NEGATIVE (NEGATIVE)
[2018-07-11 14:46] LABS: AMPHETAMINE QUAL UR NONE DETECTED (See below)
[2018-07-11] MEDS ORDERED: METFORMIN HYDR500 M1 (20:30)
[2018-07-11] MEDS ORDERED: NEXIUM40 MG (20:30)
[2018-07-11] MEDS ORDERED: TOPROL XL100 MG (20:30)
[2018-07-11 21:02] VITALS: BP 171/76
[2018-07-11 21:06] LABS: MAGNESIUM 1.8 mg/dL (1.8-2.4); PHOSPHOROUS 1.8 mg/dL (2.5-4.9)
[2018-07-11 21:09] LABS: CHOLESTEROL/HDL RATIO 4.6
[2018-07-11 22:30] VITALS: BP 138/64
[2018-07-12 05:34] VITALS: BP 149/72
[2018-07-12 09:08] VITALS: BP 144/81
[2018-07-12 09:45] LABS: BASOPHIL % 0.3 % (0-2); PLATELET COUNT 298 x10^3mcL (130-400)
[2018-07-12 09:47] LABS: RED CELL DISTRIBUTION WIDTH 15.2 % (11.5-14.5)
[2018-07-12 09:59] LABS: CALCIUM 8.1 mg/dL (8.5-10.1); CHLORIDE SERUM 105 mmol/L (98-107); CREATININE SERUM 0.9 mg/dL (0.7-1.3); GFR1 > 60 mL/min; GLUCOSE SERUM 153 mg/dL (74-106); MAGNESIUM 1.8 mg/dL (1.8-2.4); PHOSPHOROUS 1.9 mg/dL (2.5-4.9); POTASSIUM SERUM 3.7 mmol/L (3.5-5.1); SODIUM SERUM 140 mmol/L (136-145)
== END 2018-07-12 12:43 | disposition home or self-care (01) | DRG 917 ==
LOC: ED 11:56 → DU 19:36
PROVIDERS: Emergency Medicine; ADMIT General Practice
DX: T40.2X1A Poisoning by other opioids, accidental (unintentional), initial encounter (principal); G92 Toxic encephalopathy; E87.2 Acidosis; D72.829 Elevated white blood cell count, unspecified; E11.65 Type 2 diabetes mellitus with hyperglycemia; I10 Essential (primary) hypertension; E78.5 Hyperlipidemia, unspecified; E87.6 Hypokalemia; E83.39 Other disorders of phosphorus metabolism; M54.9 Dorsalgia, unspecified; Z79.84 Long term (current) use of oral hypoglycemic drugs; Y92.009 Unspecified place in unspecified non-institutional (private) residence as the place of occurrence of the external cause
CPT/HCPCS: 36600; 82962; 83880; 84439; 90658; G0480; J1885; J2060; J2270; J2310; J2405; J2543; J3480; J7030; Q0092

== ENCOUNTER 2018-07-26 08:17 | Emergency (ER) | payer OTHER, MEDICAID ==
[~2018-07-26] VITALS: Ht 170.2 cm; Wt 93.0 kg
[~2018-07-26 08:17] MED LIST changes: +METFORMIN HYDR500 M1; +NEXIUM40 MG; +TOPROL XL100 MG
[2018-07-26 08:24] VITALS: Ht 170.2 cm; Wt 93.0 kg
[2018-07-26 09:13] VITALS: BP 157/92
== END 2018-07-26 09:13 | disposition home or self-care (01) ==
LOC: ED 08:17
DX: F41.9 Anxiety disorder, unspecified (principal); I10 Essential (primary) hypertension; E11.9 Type 2 diabetes mellitus without complications; G89.29 Other chronic pain; M54.9 Dorsalgia, unspecified; K21.9 Gastro-esophageal reflux disease without esophagitis; Z91.013 Allergy to seafood
CPT/HCPCS: J1885

== ENCOUNTER 2018-08-19 15:39 | Emergency (ER) | payer OTHER, MEDICAID ==
[~2018-08-19] VITALS: Ht 170.2 cm; Wt 85.3 kg
[2018-08-19 15:49] VITALS: Ht 170.2 cm; Wt 85.3 kg
[2018-08-19 19:04] VITALS: BP 162/89
== END 2018-08-19 19:04 | disposition home or self-care (01) ==
LOC: ED 15:39
DX: F41.9 Anxiety disorder, unspecified (principal); M25.551 Pain in right hip; G89.29 Other chronic pain; I10 Essential (primary) hypertension; K21.9 Gastro-esophageal reflux disease without esophagitis; E11.40 Type 2 diabetes mellitus with diabetic neuropathy, unspecified; Z98.890 Other specified postprocedural states; Z91.013 Allergy to seafood
CPT/HCPCS: J1885

== ENCOUNTER 2018-08-20 14:22 | Emergency (ER) | payer OTHER, MEDICAID ==
[~2018-08-20] VITALS: Ht 167.6 cm; Wt 104.3 kg
[2018-08-20 14:32] VITALS: Ht 167.6 cm; Wt 104.3 kg
[2018-08-20 16:38] VITALS: BP 165/92
== END 2018-08-20 16:38 | disposition home or self-care (01) ==
LOC: ED 14:22
DX: F41.9 Anxiety disorder, unspecified (principal); F11.20 Opioid dependence, uncomplicated; F13.20 Sedative, hypnotic or anxiolytic dependence, uncomplicated; T42.75XA Adverse effect of unspecified antiepileptic and sedative-hypnotic drugs, initial encounter; G89.29 Other chronic pain; E11.9 Type 2 diabetes mellitus without complications; I10 Essential (primary) hypertension; E66.9 Obesity, unspecified; Z68.37 Body mass index [BMI] 37.0-37.9, adult; Z91.013 Allergy to seafood; Y92.89 Other specified places as the place of occurrence of the external cause
CPT/HCPCS: J1630; J1885; J2060

== ENCOUNTER 2018-08-23 11:01 | Emergency (ER) | payer OTHER, MEDICAID ==
[~2018-08-23] VITALS: Ht 139.7 cm; Wt 85.3 kg
[2018-08-23 11:05] VITALS: Ht 139.7 cm; Wt 85.3 kg
[2018-08-23 13:16] VITALS: BP 158/79
== END 2018-08-23 13:16 | disposition home or self-care (01) ==
LOC: ED 11:01
DX: G89.29 Other chronic pain (principal); I10 Essential (primary) hypertension; E11.40 Type 2 diabetes mellitus with diabetic neuropathy, unspecified; K21.9 Gastro-esophageal reflux disease without esophagitis; Z76.5 Malingerer [conscious simulation]; Z86.69 Personal history of other diseases of the nervous system and sense organs; Z98.890 Other specified postprocedural states
CPT/HCPCS: J1885

== ENCOUNTER 2018-09-28 17:30 | Emergency (ER) | payer OTHER ==
[~2018-09-28] VITALS: Ht 170.2 cm; Wt 93.0 kg
[2018-09-28 17:34] VITALS: Ht 170.2 cm; Wt 93.0 kg
[2018-09-28 19:55] VITALS: BP 151/94
== END 2018-09-28 19:55 | disposition home or self-care (01) ==
LOC: ED 17:30
DX: G89.29 Other chronic pain (principal); M54.9 Dorsalgia, unspecified; F41.9 Anxiety disorder, unspecified; I10 Essential (primary) hypertension; E11.9 Type 2 diabetes mellitus without complications; K21.9 Gastro-esophageal reflux disease without esophagitis; Z91.013 Allergy to seafood
CPT/HCPCS: J1885

== ENCOUNTER 2018-10-08 14:03 | Emergency (ER) | payer OTHER, MEDICAID ==
[~2018-10-08] VITALS: Ht 170.2 cm; Wt 85.3 kg
[2018-10-08 14:06] VITALS: Ht 170.2 cm; Wt 85.3 kg
[2018-10-08 15:13] LABS: BASOPHIL % 0.4 % (0-2); PLATELET COUNT 293 x10^3mcL (130-400)
[2018-10-08 15:14] LABS: RED CELL DISTRIBUTION WIDTH 15.3 % (11.5-14.5)
[2018-10-08 15:17] LABS: CALCIUM 8.1 mg/dL (8.5-10.1); CARBON DIOXIDE 28.9 mmol/L (21-32); CHLORIDE SERUM 104 mmol/L (98-107); GFR1 > 60 mL/min; GLUCOSE SERUM 230 mg/dL (74-106); POTASSIUM SERUM 3.2 mmol/L (3.5-5.1); SODIUM SERUM 140 mmol/L (136-145)
[2018-10-08 15:22] LABS: ALKALINE PHOSPHATASE 108 U/L (46-116); ALT/SGPT 55 U/L (16-63); AST/SGOT 55 U/L (15-37); BILIRUBIN TOTAL 0.4 mg/dL (0.20-1.00); TOTAL PROTEIN, SERUM 6.8 g/dL (6.4-8.2)
[2018-10-08 15:23] LABS: ALBUMIN 2.8 g/dL (3.4-5.0)
[2018-10-08 15:24] LABS: UA SPECIFIC GRAVITY <=1.005 (1.005-1.035); microscopic required? YES; urine erythrocyte 2+ (NEGATIVE)
[2018-10-08 16:13] VITALS: BP 151/83
== END 2018-10-08 16:13 | disposition home or self-care (01) ==
LOC: ED 14:03
PROVIDERS: Emergency Medicine
DX: R50.9 Fever, unspecified (principal); J02.9 Acute pharyngitis, unspecified; I10 Essential (primary) hypertension; F41.9 Anxiety disorder, unspecified; K21.9 Gastro-esophageal reflux disease without esophagitis; E11.40 Type 2 diabetes mellitus with diabetic neuropathy, unspecified
CPT/HCPCS: J1885; J7030; Q0092

== ENCOUNTER 2018-10-21 17:40 | Emergency (ER) | payer OTHER, MEDICAID ==
[~2018-10-21] VITALS: Ht 165.1 cm; Wt 95.3 kg
[2018-10-21 17:44] VITALS: Ht 165.1 cm; Wt 95.3 kg
[2018-10-21 20:54] VITALS: BP 150/78
== END 2018-10-21 20:54 | disposition home or self-care (01) ==
LOC: ED 17:40
DX: F41.9 Anxiety disorder, unspecified (principal); G89.29 Other chronic pain; I10 Essential (primary) hypertension; E11.9 Type 2 diabetes mellitus without complications; M54.9 Dorsalgia, unspecified; Z98.890 Other specified postprocedural states
CPT/HCPCS: J1885

== ENCOUNTER 2018-10-29 17:04 | Emergency (ER) | payer OTHER, MEDICAID ==
[~2018-10-29] VITALS: Ht 170.2 cm; Wt 94.3 kg
[2018-10-29 17:10] VITALS: Ht 170.2 cm; Wt 94.3 kg
[2018-10-29 18:32] VITALS: BP 152/72
== END 2018-10-29 18:32 | disposition home or self-care (01) ==
LOC: ED 17:04
DX: F41.9 Anxiety disorder, unspecified (principal); F13.20 Sedative, hypnotic or anxiolytic dependence, uncomplicated; M19.90 Unspecified osteoarthritis, unspecified site; I10 Essential (primary) hypertension; Z79.899 Other long term (current) drug therapy
CPT/HCPCS: J1885; J2060

== ENCOUNTER 2018-12-12 16:28 | Emergency (ER) | payer OTHER, MEDICAID ==
[~2018-12-12] VITALS: Ht 170.2 cm; Wt 95.7 kg
[2018-12-12 16:41] VITALS: Ht 170.2 cm; Wt 95.7 kg
[2018-12-12 18:37] VITALS: BP 155/73
== END 2018-12-12 18:37 | disposition home or self-care (01) ==
LOC: ED 16:28
DX: F41.9 Anxiety disorder, unspecified (principal); I10 Essential (primary) hypertension; G89.29 Other chronic pain; K21.9 Gastro-esophageal reflux disease without esophagitis; E11.40 Type 2 diabetes mellitus with diabetic neuropathy, unspecified; Z65.8 Other specified problems related to psychosocial circumstances; Z98.890 Other specified postprocedural states; Z91.013 Allergy to seafood
CPT/HCPCS: J1885

== ENCOUNTER 2019-01-26 19:39 | Emergency (ER) | payer OTHER, MEDICAID ==
[~2019-01-26] VITALS: Ht 170.2 cm; Wt 99.8 kg
[2019-01-26 20:04] VITALS: Ht 170.2 cm; Wt 99.8 kg
[2019-01-26 22:00] VITALS: BP 185/88
== END 2019-01-26 22:00 | disposition home or self-care (01) ==
LOC: ED 19:39
DX: F41.9 Anxiety disorder, unspecified (principal); R06.02 Shortness of breath; I10 Essential (primary) hypertension; G89.29 Other chronic pain; K21.9 Gastro-esophageal reflux disease without esophagitis; E11.40 Type 2 diabetes mellitus with diabetic neuropathy, unspecified; Z98.890 Other specified postprocedural states; Z91.013 Allergy to seafood
CPT/HCPCS: J1885

== ENCOUNTER 2019-01-29 17:37 | Emergency (ER) | payer OTHER, MEDICAID ==
[~2019-01-29] VITALS: Ht 172.7 cm; Wt 92.1 kg
[2019-01-29 17:42] VITALS: Ht 172.7 cm; Wt 92.1 kg
[2019-01-29 19:06] VITALS: BP 169/92
== END 2019-01-29 19:06 | disposition home or self-care (01) ==
LOC: ED 17:37
DX: F41.0 Panic disorder [episodic paroxysmal anxiety] (principal); R06.02 Shortness of breath; I10 Essential (primary) hypertension; G89.29 Other chronic pain; K21.9 Gastro-esophageal reflux disease without esophagitis; E11.40 Type 2 diabetes mellitus with diabetic neuropathy, unspecified; Z76.0 Encounter for issue of repeat prescription; Z98.890 Other specified postprocedural states; Z91.013 Allergy to seafood

== ENCOUNTER 2019-02-26 21:16 | Emergency (ER) | payer OTHER ==
[~2019-02-26] VITALS: Ht 170.2 cm; Wt 93.0 kg
[2019-02-26 21:24] VITALS: Ht 170.2 cm; Wt 93.0 kg
[2019-02-26 23:57] VITALS: BP 154/95
== END 2019-02-26 23:57 | disposition home or self-care (01) ==
LOC: ED 21:16
DX: F41.9 Anxiety disorder, unspecified (principal); I10 Essential (primary) hypertension; E11.9 Type 2 diabetes mellitus without complications; G89.29 Other chronic pain; M54.9 Dorsalgia, unspecified; Z91.013 Allergy to seafood
CPT/HCPCS: J1885

== ENCOUNTER 2019-06-21 16:31 | Emergency (ER) | payer OTHER, MEDICAID ==
[~2019-06-21] VITALS: Ht 162.6 cm; Wt 96.6 kg
[2019-06-21 17:04] VITALS: Ht 162.6 cm; Wt 96.6 kg
[2019-06-21 17:58] LABS: BASOPHIL % 0.5 % (0-2); PLATELET COUNT 344 x10^3mcL (130-400); RED CELL DISTRIBUTION WIDTH 16.5 % (11.5-14.5)
[2019-06-21 18:19] VITALS: BP 166/90
[2019-06-21 18:22] LABS: CALCIUM 8.4 mg/dL (8.5-10.1); CARBON DIOXIDE 31.5 mmol/L (21-32); CREATININE SERUM 1.3 mg/dL (0.7-1.3); POTASSIUM SERUM 3.7 mmol/L (3.5-5.1)
[2019-06-21 18:27] LABS: ALBUMIN 3.5 g/dL (3.4-5.0); BILIRUBIN TOTAL 0.2 mg/dL (0.20-1.00); TOTAL PROTEIN, SERUM 7.6 g/dL (6.4-8.2)
== END 2019-06-21 19:48 | disposition home or self-care (01) ==
LOC: ED 16:31
PROVIDERS: Emergency Medicine
DX: G89.29 Other chronic pain (principal); M54.9 Dorsalgia, unspecified; R10.30 Lower abdominal pain, unspecified; R53.1 Weakness; I10 Essential (primary) hypertension; E11.9 Type 2 diabetes mellitus without complications; K21.9 Gastro-esophageal reflux disease without esophagitis; F41.9 Anxiety disorder, unspecified; Z91.013 Allergy to seafood; Z98.890 Other specified postprocedural states
CPT/HCPCS: 36415; J1885

== ENCOUNTER 2019-08-08 16:38 | Emergency (ER) | payer OTHER, MEDICAID ==
[~2019-08-08] VITALS: Ht 172.7 cm; Wt 97.5 kg
[2019-08-08 16:45] VITALS: Ht 172.7 cm; Wt 97.5 kg
[2019-08-08 17:55] VITALS: BP 144/84
== END 2019-08-08 17:55 | disposition home or self-care (01) ==
LOC: ED 16:38
DX: M54.5 Low back pain (principal); R10.32 Left lower quadrant pain; G89.29 Other chronic pain; F41.9 Anxiety disorder, unspecified; I10 Essential (primary) hypertension; E11.9 Type 2 diabetes mellitus without complications; Z98.890 Other specified postprocedural states; Z91.013 Allergy to seafood
CPT/HCPCS: 82962; J1885

== ENCOUNTER 2019-09-20 11:15 | Emergency (ER) | payer OTHER, MEDICAID ==
[~2019-09-20] VITALS: Ht 170.2 cm; Wt 90.7 kg
[2019-09-20 11:22] VITALS: Ht 170.2 cm; Wt 90.7 kg
[2019-09-20 12:15] VITALS: BP 174/83
== END 2019-09-20 12:15 | disposition home or self-care (01) ==
LOC: ED 11:15
DX: M54.16 Radiculopathy, lumbar region (principal); F41.9 Anxiety disorder, unspecified; I10 Essential (primary) hypertension; E11.9 Type 2 diabetes mellitus without complications; E66.9 Obesity, unspecified; Z68.37 Body mass index [BMI] 37.0-37.9, adult; Z88.6 Allergy status to analgesic agent; Z91.013 Allergy to seafood
CPT/HCPCS: J1630; J2060

== ENCOUNTER 2019-11-01 08:43 | Emergency (ER) | payer OTHER, MEDICAID ==
[~2019-11-01] VITALS: Ht 170.2 cm; Wt 90.7 kg
[2019-11-01 08:57] VITALS: Ht 170.2 cm; Wt 90.7 kg
[2019-11-01 09:35] LABS: BASOPHIL % 0.5 % (0-2); PLATELET COUNT 322 x10^3mcL (130-400)
[2019-11-01 09:56] LABS: RED CELL DISTRIBUTION WIDTH 15.5 % (11.5-14.5)
[2019-11-01 10:13] LABS: CARBON DIOXIDE 24.7 mmol/L (21-32); CHLORIDE SERUM 102 mmol/L (98-107); GLUCOSE SERUM 162 mg/dL (74-106); POTASSIUM SERUM 3.4 mmol/L (3.5-5.1); SODIUM SERUM 139 mmol/L (136-145)
[2019-11-01 10:14] LABS: ALBUMIN 3.4 g/dL (3.4-5.0); AST/SGOT 20 U/L (15-37); BILIRUBIN TOTAL 0.5 mg/dL (0.20-1.00); CREATININE SERUM 1.1 mg/dL (0.7-1.3); GFR1 > 60 mL/min; TOTAL PROTEIN, SERUM 7.3 g/dL (6.4-8.2)
[2019-11-01 10:15] LABS: ALKALINE PHOSPHATASE 61 U/L (46-116); ALT/SGPT 17 U/L (16-63)
[2019-11-01 10:16] LABS: LIPASE 74 IU/L (73-393)
[2019-11-01 10:24] LABS: CALCIUM 8.7 mg/dL (8.5-10.1)
[2019-11-01 11:02] VITALS: BP 188/81
== END 2019-11-01 11:02 | disposition home or self-care (01) ==
LOC: ED 08:43
PROVIDERS: Emergency Medicine
DX: K57.30 Diverticulosis of large intestine without perforation or abscess without bleeding (principal); I10 Essential (primary) hypertension; G89.29 Other chronic pain; K21.9 Gastro-esophageal reflux disease without esophagitis; E11.40 Type 2 diabetes mellitus with diabetic neuropathy, unspecified; Z98.890 Other specified postprocedural states; Z91.013 Allergy to seafood; Z88.6 Allergy status to analgesic agent
CPT/HCPCS: J2270; J2405; J7030

== ENCOUNTER 2019-11-09 08:40 | Emergency (ER) | payer OTHER, MEDICAID ==
[~2019-11-09] VITALS: Ht 170.2 cm; Wt 90.7 kg
[2019-11-09 08:45] VITALS: Ht 170.2 cm; Wt 90.7 kg
[2019-11-09 09:43] VITALS: BP 188/87
== END 2019-11-09 09:43 | disposition home or self-care (01) ==
LOC: ED 08:40
DX: G89.29 Other chronic pain (principal); R10.814 Left lower quadrant abdominal tenderness; R68.83 Chills (without fever); R11.2 Nausea with vomiting, unspecified; R06.02 Shortness of breath; I10 Essential (primary) hypertension; K21.9 Gastro-esophageal reflux disease without esophagitis; E11.40 Type 2 diabetes mellitus with diabetic neuropathy, unspecified; Z87.19 Personal history of other diseases of the digestive system; Z91.013 Allergy to seafood
CPT/HCPCS: J1885

== ENCOUNTER 2019-12-03 10:24 | Emergency (ER) | payer OTHER, MEDICAID ==
[~2019-12-03] VITALS: Ht 170.2 cm; Wt 90.7 kg
[2019-12-03 10:28] VITALS: Ht 170.2 cm; Wt 90.7 kg
[2019-12-03 11:45] LABS: BASOPHIL % 0.7 % (0-2)
[2019-12-03 11:48] LABS: PLATELET COUNT 428 x10^3mcL (130-400); RED CELL DISTRIBUTION WIDTH 14.7 % (11.5-14.5)
[2019-12-03 11:52] LABS: ALBUMIN 3.5 g/dL (3.4-5.0); ALKALINE PHOSPHATASE 70 U/L (46-116); ALT/SGPT 13 U/L (16-63); AST/SGOT 15 U/L (15-37); BILIRUBIN TOTAL 0.33 mg/dL (0.20-1.00); CALCIUM 8.4 mg/dL (8.5-10.1); CARBON DIOXIDE 32.1 mmol/L (21-32); CHLORIDE SERUM 101 mmol/L (98-107); GFR1 > 60 mL/min; GLUCOSE SERUM 154 mg/dL (74-106); LIPASE 60 IU/L (73-393); SODIUM SERUM 138 mmol/L (136-145); TOTAL PROTEIN, SERUM 7.6 g/dL (6.4-8.2)
[2019-12-03 11:57] VITALS: BP 168/95
[2019-12-03 11:57] LABS: POTASSIUM SERUM 2.7 mmol/L (3.5-5.1)
== END 2019-12-03 11:57 | disposition home or self-care (01) ==
LOC: ED 10:24
PROVIDERS: Emergency Medicine
DX: R10.32 Left lower quadrant pain (principal); I10 Essential (primary) hypertension; G89.29 Other chronic pain; K21.9 Gastro-esophageal reflux disease without esophagitis; E11.40 Type 2 diabetes mellitus with diabetic neuropathy, unspecified; Z91.013 Allergy to seafood; Z87.19 Personal history of other diseases of the digestive system
CPT/HCPCS: J1885; J2405

== ENCOUNTER 2020-04-07 17:53 | Emergency (ER) | payer OTHER, MEDICAID ==
[~2020-04-07] VITALS: Ht 170.2 cm; Wt 90.7 kg
[~2020-04-07 17:53] MED LIST changes: +AMITIZA24 MC1 PO; +EASY COMFORT ALCO70% TOP; +INSULIN SYRING1 EA29 SQ; +LANTI SQ; +PROTONIX TR40 M1 PO; +REG10 PO; +SEN PO; +VITC PO
[2020-04-07 18:02] VITALS: Ht 170.2 cm; Wt 90.7 kg
[2020-04-07 21:20] VITALS: BP 160/84
== END 2020-04-07 21:20 | disposition home or self-care (01) ==
LOC: ED 17:53
DX: G89.29 Other chronic pain (principal); M54.5 Low back pain; K21.9 Gastro-esophageal reflux disease without esophagitis; I10 Essential (primary) hypertension; E11.40 Type 2 diabetes mellitus with diabetic neuropathy, unspecified; Z98.890 Other specified postprocedural states; Z91.013 Allergy to seafood

== ENCOUNTER 2020-05-07 11:54 | Emergency (ER) | payer OTHER ==
[~2020-05-07] VITALS: Ht 170.2 cm; Wt 90.7 kg
[2020-05-07 12:06] VITALS: Ht 170.2 cm; Wt 90.7 kg
[2020-05-07 13:20] VITALS: BP 173/94
== END 2020-05-07 14:16 | disposition home or self-care (01) ==
LOC: ED 11:54
DX: R10.9 Unspecified abdominal pain (principal); I10 Essential (primary) hypertension; E11.9 Type 2 diabetes mellitus without complications; Z91.013 Allergy to seafood
CPT/HCPCS: J1885